=== PATIENT | female | born 1965 | race Caucasian/White ===

== ENCOUNTER 2017-02-26 14:39 | Emergency (ER) | payer OTHER ==
[~2017-02-26] VITALS: Ht 162.6 cm; Wt 51.0 kg
[2017-02-26 14:48] VITALS: TEMP 36.4; Ht 162.6 cm; Wt 51.0 kg
[2017-02-26] MEDS ORDERED: PROCHLORPERAZINE 5 MG/ML 2 ML VIAL IV STA (15:17)
[2017-02-26] MEDS ORDERED: KETOROLAC TROMETHAMINE 30 MG/ML VIAL IV STA (15:17)
[2017-02-26] MEDS ORDERED: DiphenhydrAMINE HCL 50 MG/ML VIAL IV STA (15:17)
[2017-02-26] MEDS ORDERED: SODIUM CHLORIDE 0.9% 1000ML 1,000 ML IV STA (15:17)
[2017-02-26] MEDS ORDERED: SODIUM CHLORIDE 0.9% 1000ML 2,000 ML IV STA (15:17)
[2017-02-26] MEDS ORDERED: ONDANSETRON INJ 2 MG/ML 2 ML VIAL IV STA (15:17)
[2017-02-26] MEDS ORDERED: CHOL2000 PO (15:28)
[2017-02-26] MEDS ORDERED: BUPRTAB51 PO (15:28)
[2017-02-26] MEDS ORDERED: FROV1TAB PO (15:28)
[2017-02-26] MEDS ORDERED: VORT1TAB3 PO (15:28)
[2017-02-26 15:57] LABS: COMPLETE YES; EOS % 0.2 %; HEMATOCRIT 41.3 % (37-47); LYMPH % 8.9 %; LYMPH ABS # 0.41 K/uL (1.2-3.4); MEAN CORPUSCULAR HGB CONC 33.7 g/dl (32-36); MEAN PLATELET VOLUME 9.9 fL (7.4-10.4); NEUT % 87.9 %; PLATELET COUNT 214 K/uL (130-400); RED BLOOD COUNT 4.64 M/uL (4.2-5.4)
[2017-02-26 16:16] LABS: PREG INTERNAL NEGATIVE QC NEG CLEAR BACKGROUND; PREG INTERNAL POSITIVE QC POS CONTROL LINE
[2017-02-26 17:00] LABS: MAGNESIUM 2.2 mg/dl (1.8-2.4)
[2017-02-26 17:14] LABS: ALB/GLOB RATIO 1.2 (0.9-2); BUN/CREATININE RATIO 19.5 (10-20); CALCIUM 9.1 mg/dl (8.5-10.1); CREATININE 0.84 mg/dl (0.60-1.20)
--- NOTE | 2017-02-26 18:06 | EMERGENCY ROOM VISIT NOTE ---
History First contact with patient: 14:59 Chief Complaint: VOMITING Stated Complaint: VOMITING, HARD TO MOVE, POSSIBLE FOOD POISONING Nursing Triage Summary: PT HERE WITH HEADACHE, N/V/D SINCE 0600. PT STATES ATE [place] FOOD LAST PM, BUT ALSO GETS MIGRAINES. PT HERE OUT OF TOWN TO CERTIFIED DENTAL ASSISTANT DAUGHTER History of Present Illness Patient is a 52-year-old white female with past medical history significant for migraine headaches who presents the emergency department accompanied by her daughter for evaluation of a headache, with nausea, vomiting and diarrhea that began this morning. 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 They moved out of the dorm last evening and packed up the car. They went out to dinner at a tire restaurant last night. They ate some of the same foods. Patient reports that she woke at 6:00 this morning with what felt like her typical migraine. She took her triptan medication, and tried to go back to sleep. About 3 hours later she was awoken with the abrupt onset of nausea, with multiple episodes of violent vomiting and diarrhea. She states that she has not had any further diarrhea, and has only had dry heaves since. She notes that it was all very foul-smelling. She did not appreciate any blood. Her stomach still feels very queasy and upset, but she denies any localized abdominal pain. She has continued to experience what she would call a normal migraine for her. She feels a throbbing, retro-orbital headache with associated photosensitivity. She would rate her head pain is 6/10 presently. She states that her mouth feels dry. She denies any urinary symptoms. No difficulty with balance, speech or coordination. Patient's daughter states that she has been acting appropriately. This is not the worst headache of her life. She reports that she has never had to go to her local emergency department for migraines. Review of Systems Review of systems as per HPI. All other systems reviewed were negative. 10 systems reviewed. Past Medical/Surgical History Medical Problems: (1) Depression (2) Migraine Surgical Problems: (1) History of abdominoplasty The patient does not have any old records available for review. Supplemental sheet completed by the patient was reviewed Social History Smoking Status: Never Smoker Alcohol Use: occasionally Marital Status: Housing Status: lives with family Occupation Status: unemployed Current/Historical Medications Scheduled Bupropion Hcl (Wellbutrin Xl), 450 MG PO QAM Cholecalciferol (Vitamin D3), 2,000 INTER.UNIT PO DAILY Vortioxetine HBr (Trintellix), 25 MG PO QAM Scheduled PRN Frovatriptan Succinate (Frovatriptan Succinate), 2.5 MG PO DAILY PRN for Headache Allergies Coded Allergies: No Known Allergies (Unverified , 02/26/17) Physical Exam Vital Signs Date Time Temp Pulse Resp B/P Pulse Ox O2 Delivery O2 Flow Rate FiO2 02/26/17 18:42 74 16 118/71 100 02/26/17 18:20 74 16 18/71 100 Room Air 02/26/17 16:45 79 18 116/67 99 Room Air 02/26/17 14:48 36.4 82 16 127/87 97 Physical Exam Vital Signs: Reviewed Nurse's notes. General Appearance: Patient is an uncomfortable-appearing 52-year-old white female who is awake and alert and laying in the position on a gurney with a cool washcloth over her eyes. Eyes: Pupils equal round reactive to light, extraocular muscles are intact, no proptosis, mild photophobia ENT: Oropharynx is clear, mucous membranes are dry, tympanic membranes are clear bilaterally, no sinus or dental tenderness Neck: Supple, no cervical lymphadenopathy, no meningismus Heart: Regular rate and rhythm, S1 and S2 Lungs: Clear to auscultation bilaterally, no wheezes Rales or rhonchi, no increased work of breathing Abdomen: Bowel sounds are present. Abdomen is soft, diffusely tender to palpation, no guarding, rebound or rigidity. Well-healed surgical scars are noted. Back: No midline tenderness to palpation. : No CVA tenderness to palpation. Skin: Warm, no diaphoresis, no rashes. Extremities: No cyanosis, clubbing, or edema Neurologic: Patient is awake alert, and oriented x 3. Cranial nerves 2-12 are grossly intact. Motor 5 out of 5 strength bilateral upper extremities and lower extremities. No gross sensory deficits. Reflexes are 2+ throughout. Medical Decision & Procedures Laboratory Results 02/26/17 15:45 Red Blood Count 4.64, Mean Corpuscular Volume 89.0, Mean Corpuscular Hemoglobin 30.0, Mean Corpuscular Hemoglobin Concent 33.7, Mean Platelet Volume 9.9, Neutrophils (%) (Auto) 87.9, Lymphocytes (%) (Auto) 8.9, Monocytes (%) (Auto) 3.0, Eosinophils (%) (Auto) 0.2, Basophils (%) (Auto) 0.0, Neutrophils # (Auto) 4.04, Lymphocytes # (Auto) 0.41, Monocytes # (Auto) 0.14, Eosinophils # (Auto) 0.01, Basophils # (Auto) 0.00 02/26/17 15:45 Test 02/26/17 15:45 White Blood Count 4.60 K/uL (4.8-10.8) Red Blood Count 4.64 M/uL (4.2-5.4) Hemoglobin 13.9 g/dL (12.0-16.0) Hematocrit 41.3 % (37-47) Mean Corpuscular Volume 89.0 fL (80-100) Mean Corpuscular Hemoglobin 30.0 pg (25-34) Mean Corpuscular Hemoglobin Concent 33.7 g/dl (32-36) Platelet Count 214 K/uL (130-400) Mean Platelet Volume 9.9 fL (7.4-10.4) Neutrophils (%) (Auto) 87.9 % Lymphocytes (%) (Auto) 8.9 % Monocytes (%) (Auto) 3.0 % Eosinophils (%) (Auto) 0.2 % Basophils (%) (Auto) 0.0 % Neutrophils # (Auto) 4.04 K/uL (1.4-6.5) Lymphocytes # (Auto) 0.41 K/uL (1.2-3.4) Monocytes # (Auto) 0.14 K/uL (0.11-0.59) Eosinophils # (Auto) 0.01 K/uL (0-0.5) Basophils # (Auto) 0.00 K/uL (0-0.2) RDW Standard Deviation 41.4 fL (36.4-46.3) RDW Coefficient of Variation 12.8 % (11.5-14.5) Immature Granulocyte % (Auto) 0.0 % Immature Granulocyte # (Auto) 0.00 K/uL (0.00-0.02) Anion Gap 8.0 mmol/L (3-11) Est Creatinine Clear Calc Drug Dose 63.8 ml/min Estimated GFR () 93.3 Estimated GFR (Non- 80.5 BUN/Creatinine Ratio 19.5 (10-20) Calcium Level 9.1 mg/dl (8.5-10.1) Magnesium Level 2.2 mg/dl (1.8-2.4) Total Bilirubin 0.6 mg/dl (0.2-1) Aspartate Amino Transf (AST/SGOT) 16 U/L (15-37) Alanine Aminotransferase (ALT/SGPT) 26 U/L (12-78) Alkaline Phosphatase 93 U/L (45-117) Total Protein 8.0 gm/dl (6.4-8.2) Albumin 4.3 gm/dl (3.4-5.0) Globulin 3.7 gm/dl (2.5-4.0) Albumin/Globulin Ratio 1.2 (0.9-2) Lipase 119 U/L (73-393) Human Chorionic Gonadotropin, Qual NEG (NEG) Chemistry Specimen Hemolysis Medications Administered Medications (Trade) Dose Ordered Sig/Sebastian Route Start Time Stop Time Status Last Admin Dose Admin Sodium Chloride (Nss 1000ml) 2,000 ml @ 999 mls/hr Q2H1M STAT IV 02/26/17 15:17 02/26/17 17:17 DC 02/26/17 16:41 999 MLS/HR Ketorolac Tromethamine (Toradol Inj) 30 mg NOW STAT IV 02/26/17 15:17 02/26/17 15:21 DC 02/26/17 16:42 30 MG Prochlorperazine Edisylate (Compazine Inj) 10 mg NOW STAT IV 02/26/17 15:17 02/26/17 15:21 DC 02/26/17 16:42 10 MG Diphenhydramine HCl (Benadryl Inj) 25 mg NOW STAT IV 02/26/17 15:17 02/26/17 15:21 DC 02/26/17 16:42 25 MG Ondansetron HCl (Zofran Inj) 4 mg NOW STAT IV 02/26/17 15:17 02/26/17 15:21 DC 02/26/17 16:41 4 MG Ondansetron HCl (ZOFRAN ODT 4MG Home Pack) 1 homepack UD ONCE PO 02/26/17 18:15 02/26/17 18:16 DC 02/26/17 18:39 1 [facility] ED Course The patient was seen and assessed as above. She has no old records at our facility for review. She presents the emergency department for evaluation of a headache in the setting of a vomiting and diarrheal illness that began acutely this morning. She does have a history of migraine headaches, states that this feels similar and is typical of her usual migraine phenomenon. She has a benign neurologic exam. IV lock was initiated and laboratory studies were collected. She was hydrated with a 2 L bolus of normal saline solution, then 250 mL of normal saline per hour. She was medicated with Toradol 30 mg, Compazine 10 mg, Benadryl 25 mg and Zofran 4 mg IV. Laboratory studies including CBC, CMP and lipase were drawn. Stool studies were ordered, but the patient only provided one stool sample early in her ED visit which was contaminated with urine and she had no further diarrhea to collect a sample during the remainder of her ED workup. The patient was observed in the emergency department for roughly 3 hours awaiting the results of her workup. Laboratory studies noted a white count of 4600, no left shift or bandemia. She is not anemic. Electrolytes, renal functions and liver functions are all within normal limits. Lipase is not indicative of acute pancreatitis. The patient did a urine sample which noted proteins and ketones, no other indicators for infection. The patient was reassessed. She had no further vomiting or diarrhea, reported good resolution of her headache and was given oral fluids in the emergency department which she tolerated. I do suspect an acute vomiting and diarrheal illness, possibility of a foodborne illness or viral illness was discussed with the patient. She also developed a typical migraine, could have been brought on by the GI illness, or occurred concurrently. On reassessment the patient looked much better, she rated her headache a 0/10 and she felt well enough to be discharged to home. Supportive care measures were discussed. She was given a Zofran home pack. She was encouraged to follow-up with her doctors when she returns home to [place]. She expressed understanding of this. Differential includes: UTI, pyelonephritis, renal colic, bowel obstruction, enteritis, infectious versus inflammatory colitis, food borne illness, acute intracranial bleed, infection, migraine, tumor, headache, temporal arteritis among others. Medical Decision See ED course. Impression Primary Impression: Nausea, vomiting, and diarrhea Additional Impression: Headache Departure Information Referrals No Doctor, Assigned (PCP) Patient Instructions My [facility] Additional Instructions DO NOT drive, drink alcohol, operate machinery, or perform dangerous activities today. You were given medications in the ER that can affect your ability to safely function or operate a vehicle. Zofran(odansetron) tablets 4mg: Take one and allow it to dissolve in your mouth every four to six hours as needed for nausea or vomiting. Acetaminophen(Tylenol) may be used for fever or pain. Use 1000mg every eight hours as needed. Avoid using more than 3000mg in a 24 hour period. This is available over the counter. Read all the package inserts or medication information paperwork provided. If you have any questions or concerns call your primary provider, pharmacist or the ER for assistance. Rest and drink plenty of fluids as tolerated. Slow sips of water or sports drinks are recommended instead of large amounts all at once. Continue current medications. Once your stomach is settled start with a clear liquid diet (jello, soup broth, etc.) and then advance as tolerated. You should avoid full, heavy meals for about 24 hrs from the time your symptoms resolved. Return to the ER for persistent vomiting, fevers, abdominal pain, chest pains, difficulty breathing, black or bloody stools, worsening of your condition, or as needed. Follow up with your primary physician in 1-2 days for a recheck of your current condition Problem Qualifiers
[2017-02-26] MEDS ORDERED: ONDANSETRON HOME PACK 4MG OD TAB PO ONE (18:15)
[2017-02-26 18:42] VITALS: BP 118/71; PULSE 74; O2SAT 100
== END 2017-02-26 18:43 | disposition home or self-care (01) ==
LOC: C.EDB 14:42
DX: G43.909 Migraine, unspecified, not intractable, without status migrainosus (principal); R11.2 Nausea with vomiting, unspecified; R19.7 Diarrhea, unspecified; F32.9 Major depressive disorder, single episode, unspecified; Z98.890 Other specified postprocedural states; Z79.899 Other long term (current) drug therapy